=== PATIENT | male | born 2000 | race Hispanic/Latino ===

== ENCOUNTER 2022-08-01 16:01 | Observation (INO) | payer SELFPAY ==
[~2022-08-01 16:01] MED LIST: Iopamidol-370 76% 500 ML 1 ML ONE
[2022-08-01] MEDS ORDERED: Ketorolac Tromethamine 30 MG/ML VIAL ONE (16:13)
[2022-08-01] MEDS ORDERED: Morphine 4 MG/ML VIAL ONE (16:13)
[2022-08-01 16:17] LABS: #Basophils 0.1 thou/uL (0.0-0.2); #Eosinphils 0.1 thou/uL (0.0-0.7); #Lymphocytes 4.1 thou/uL (1.20-3.40); #Monocytes 0.7 thou/uL (0.11-0.59); #Neutrophils 5.2 thou/uL (1.40-6.50); %Basophils 1.2 % (0.0-1.0); %Eosinophils 0.9 % (0.0-10.0); %Monocytes 7.2 % (0.0-4.0); %Neutrophils 50.7 % (31.0-61.0); Hemoglobin 14.9 g/dL (14.0-18.0); Mean Corpuscular HGB CONC 34.1 g/dL (32.0-36.0); Mean Corpuscular Hemoglobin 30.9 pg (25.0-35.0); Mean Corpuscular Volume 90.7 fL (78.0-98.0); Mean Platelet Volume 6.7 fL (7.4-10.4); Platelet Count 317 thou/uL (130-400); RBC Distribution Width 11.5 % (11.5-14.5); Red Blood Cell (RBC) Count 4.83 mill/uL (4.00-5.20); White Blood Cell (WBC) Count 10.2 thou/uL (4.8-10.8)
[2022-08-01 16:42] LABS: ALT (SGPT) 13 U/L (8-55); AST (SGOT) 15 U/L (5-34); Albumin 4.4 g/dL (3.5-5.0); Alkaline Phosphatase 79 U/L (50-130); Anion Gap 14 mmol/L (10-20); BUN (Urea Nitrogen) 14 mg/dL (8.9-20.6); Bilirubin, Total 0.6 mg/dL (0.2-1.2); Calc. Creatinine Clearance 0 mL/min (70-130); Calcium 9.2 mg/dL (7.8-10.44); Carbon Dioxide 22 mmol/L (22-29); Chloride 107 mmol/L (98-107); Estimated GFR 103; Globulin 2.7 g/dL (2.4-3.5); Glucose 120 mg/dL (70-105); Potassium 3.8 mmol/L (3.5-5.1); Protein, Total 7.1 g/dL (6.0-8.3); Sodium 139 mmol/L (136-145)
[2022-08-01] MEDS ORDERED: TETANUS, DIPHTHERIA TOX,ADULT (TDVAX) 0.5 ML VIAL IM ONE (17:52)
[2022-08-01] MEDS ORDERED: Ondansetron PF 4 MG/2 ML Vial IVP PRN (17:52)
[2022-08-01] MEDS ORDERED: hydrALAZINE 20 MG/ML VIAL SLOW IVP PRN (17:52)
[2022-08-01] MEDS ORDERED: traMADol HCl 50 MG TAB PO PRN (17:56)
[2022-08-01] MEDS ORDERED: Acetaminophen 325 MG TAB PO SCH (18:00)
[2022-08-01 18:50] LABS: Lactic Acid 1.5 mmol/L (0.5-2.2)
[2022-08-01 18:53] LABS: CK (CPK) 206 U/L (30-200); Magnesium 1.9 mg/dL (1.7-2.2); Phosphorus 2.2 mg/dL (2.3-4.7)
[2022-08-01] MEDS: Famotidine/PF 20 mg/2ml Vial SLOW IVP SCH (20:15)
[2022-08-01] MEDS: Sodium Chloride 0.9% 1,000 ML IV SCH (20:25)
[2022-08-01] MEDS: Acetaminophen 500 MG TAB PO SCH (20:36)
[2022-08-01] MEDS: traMADol HCl 50 MG TAB PO SCH (20:37)
[2022-08-02] MEDS: traMADol HCl 50 MG TAB PO SCH ×4 (00:19→18:10)
[2022-08-02] MEDS: Acetaminophen 500 MG TAB PO SCH ×3 (02:33→13:51)
[2022-08-02] MEDS: Sodium Chloride 0.9% 1,000 ML IV SCH (03:00)
[2022-08-02 06:14] LABS: #Eosinphils 0.1 thou/uL (0.0-0.7); #Lymphocytes 3.8 thou/uL (1.20-3.40); #Monocytes 0.9 thou/uL (0.11-0.59); #Neutrophils 5.6 thou/uL (1.40-6.50); %Basophils 0.4 % (0.0-1.0); %Eosinophils 1.3 % (0.0-10.0); %Lymphocytes 35.9 % (28.0-48.0); %Monocytes 8.7 % (0.0-4.0); %Neutrophils 53.6 % (31.0-61.0); Hemoglobin 12.7 g/dL (14.0-18.0); Mean Corpuscular HGB CONC 33.2 g/dL (32.0-36.0); Mean Corpuscular Hemoglobin 30.5 pg (25.0-35.0); Mean Corpuscular Volume 91.9 fL (78.0-98.0); Mean Platelet Volume 6.6 fL (7.4-10.4); Platelet Count 240 thou/uL (130-400); RBC Distribution Width 11.6 % (11.5-14.5); Red Blood Cell (RBC) Count 4.17 mill/uL (4.00-5.20); White Blood Cell (WBC) Count 10.5 thou/uL (4.8-10.8)
[2022-08-02 06:31] LABS: Lactic Acid 0.7 mmol/L (0.5-2.2)
[2022-08-02 06:34] LABS: Anion Gap 9 mmol/L (10-20); BUN (Urea Nitrogen) 8 mg/dL (8.9-20.6); CK (CPK) 292 U/L (30-200); Calc. Creatinine Clearance 0 mL/min (70-130); Calcium 8.3 mg/dL (7.8-10.44); Carbon Dioxide 22 mmol/L (22-29); Chloride 114 mmol/L (98-107); Estimated GFR 130; Glucose 92 mg/dL (70-105); Magnesium 1.9 mg/dL (1.7-2.2); Potassium 3.8 mmol/L (3.5-5.1); Sodium 141 mmol/L (136-145)
[2022-08-02 08:48] LABS: Phosphorus 4.2 mg/dL (2.3-4.7)
[2022-08-02] MEDS: Famotidine/PF 20 mg/2ml Vial SLOW IVP SCH (09:06)
[2022-08-02 12:44] VITALS: TEMP 98.1; BMI 25.7
[2022-08-02 16:10] VITALS: BP 109/56
== END 2022-08-02 19:00 | disposition home or self-care (01) ==
LOC: ERS 16:01 → SURG A 17:52
PROVIDERS: ADMIT Specialist; ATTEND Specialist
DX: S36.523A Contusion of sigmoid colon, initial encounter (principal); S36.892A Contusion of other intra-abdominal organs, initial encounter; V49.50XA Passenger injured in collision with unspecified motor vehicles in traffic accident, initial encounter
CPT/HCPCS: 36415; 70450; 71045; 72125; 74177; 80048; 80053; 82550; 83605; 83735; 84100; 85025; 86850; 86900; 86901; 90714; 93005; 96374; 96375; 96376; G0378; G0390; J1885; J2270; J7050; Q9967; S0028